=== PATIENT | female | born 1955 | race Caucasian/White ===

== ENCOUNTER → 2023-02-07 | Outpatient (REF) | payer MEDICARE | LOC: M PLALAB 10:58 | PROVIDERS: ATTEND Obstetrics & Gynecology | DX: Z01.419 Encounter for gynecological examination (general) (routine) without abnormal findings (principal) ==

== ENCOUNTER → 2024-01-30 | Outpatient (CLI) | payer MEDICARE | LOC: M RAD 11:22 | PROVIDERS: ATTEND Internal Medicine | DX: M79.644 Pain in right finger(s) (principal); G89.29 Other chronic pain; M25.551 Pain in right hip ==

== ENCOUNTER → 2025-04-09 | Outpatient (CLI) | payer MEDICARE | LOC: M RAD 11:21 | PROVIDERS: ATTEND Physician Assistant | DX: M19.031 Primary osteoarthritis, right wrist (principal); M25.531 Pain in right wrist ==